=== PATIENT | male | born 1965 | race Caucasian/White ===

== ENCOUNTER 2018-04-23 10:47 | Inpatient (IN) ==
[2018-04-23 11:48] LABS: Baso % (Auto) 0.5 % (0.0-2.0); Eos % (Auto) 0.5 % (0.0-4.0); Hematocrit 47.5 % (39.0-51.0); Hemoglobin 17.4 gm/dL (13.0-17.0); Lymph # (Auto) 1.2 th/mm3 (1.0-4.8); Lymph % (Auto) 15.3 % (9.0-44.0); Mean Corpuscular Hemoglobin 32.8 pg (27.0-34.0); Mean Corpuscular Volume 89.5 fL (80.0-100.0); Mean Platelet Volume 8.6 fL (7.0-11.0); Mono # (Auto) 0.5 th/mm3 (0.0-0.9); Mono % (Auto) 6.8 % (0.0-8.0); Neut # (Auto) 6.1 th/mm3 (1.8-7.7); Neut % (Auto) 76.9 % (16.0-70.0); Platelet Count 250 th/mm3 (150-450); Red Cell Distribution Width 13.1 % (11.6-17.2)
--- NOTE | 2018-04-23 11:58 | ED ---
HPI General Chief Complaint: Psychiatric Symptoms Stated Complaint: psych eval/vcso Time Seen by Provider: 04/23/18 11:07 Source: patient and RN notes reviewed Limitations: no limitations History of Present Illness HPI Narrative: 52-year-old male was moved from the psychiatric pod, J pod, to echo medical pod for further evaluation. Patient was brought in by police under [employer] act. According to the patient, he has been making suicidal statements to his and has been depressed. He came here voluntarily 3 days ago, but left AMA when offered voluntary admission. Apparently, while in J pod , while the nurse was drawing blood, he grabbed the needle from the Vacutainer and was stabbing himself on both sides of his neck. The patient is moved to a medical pod for further evaluation. On my exam, he is in four-point restraints. He is withdrawn, but answering questions. He states that he made a huge mistake by moving from [place] to the [facility]. He is disappointed in himself and has been depressed. He states that he was angry that he was brought to the hospital under Brock act and that is why he tried to hurt himself. He states he has no current suicidal or homicidal ideations. The patient does not want to elaborate on why he is depressed. He reports drinking alcohol occasionally. No illicit drug use. He denies any pain or medical complaints at this time. Moderate severity. Patient will not tell me if his tetanus immunization is up to date, but declines any vaccinations today. MD complaint: Reports feels depressed Onset (ago): month(s) Duration: constant Relieving factors: none Exacerbating factors: none Context: Reports significant life stressor Associated psychiatric symptoms: Reports depression Associated symptoms: Reports denies other symptoms; Denies confusion, headache, shortness of breath, nausea, vomiting, syncope and insomnia Treatments prior to arrival: Reports placed on mental health hold If self harm: self-inflicted trauma Related Data Home Medications Medication Instructions Recorded Confirmed omeprazole 20 mg PO DAILY 04/20/18 04/23/18 simvastatin 20 mg PO QPM 04/20/18 04/23/18 Allergies Allergy/AdvReac Type Severity Reaction Status Date / Time azithromycin Allergy Hives Verified 04/23/18 10:54 Review of Systems ROS: all other systems reviewed are negative [facility] Social History Social History Substance History: No History of Abuse Second Hand Smoke Exposure: No Smoking Status: Never smoker How Often Do You Have a Drink Containing Alcohol: Never Recent Travel in [facility] within the Last 8 Weeks: No Recent Out of Country Travel within the Last 8 Weeks: No Immunization History Tetanus Immunization: Unsure Exam Narrative Exam Narrative: GENERAL: Well-nourished, well-developed male patient, ambulatory. Afebrile. SKIN: Focused skin assessment warm/dry. HEAD: Normocephalic. EYES: No scleral icterus. No injection or drainage. NECK: Supple, trachea midline. No JVD or lymphadenopathy. Patient has small puncture, nonbleeding wounds to anterior neck CARDIOVASCULAR: Regular rate and rhythm without murmurs, gallops, or rubs. RESPIRATORY: Breath sounds equal bilaterally. No accessory muscle use. Lung sounds are clear to auscultation. GASTROINTESTINAL: Abdomen soft, non-tender, nondistended. MUSCULOSKELETAL: No cyanosis, or edema. BACK: Nontender without obvious deformity. No CVA tenderness. PSYCHIATRIC: Flat affect, withdrawn Course Initial Documented Vital Signs Temperature 97.8 F 04/23/18 10:55 Pulse Rate 86 04/23/18 10:55 Respiratory Rate 16 04/23/18 10:55 Blood Pressure 159/95 H 04/23/18 10:55 Pulse Oximetry 99 04/23/18 10:55 Last Documented Vital Signs Temperature 98.8 F 04/23/18 18:26 Pulse Rate 83 04/23/18 18:26 Respiratory Rate 18 04/23/18 18:26 Blood Pressure 134/84 04/23/18 18:26 Pulse Oximetry 99 04/23/18 18:26 Medical Decision Making [facility] Narrative Medical decision making narrative: 52-year-old male presents to the emergency department under Brock act for psychiatric evaluation. While in the psychiatric pot, the patient grabbed a needle from a Vacutainer and began punching himself in the neck. IV access obtained. CBC, CMP, TSH, magnesium, alcohol level, Tylenol level, salicylate level are ordered and pending. CT of soft tissue neck with IV contrast is ordered and pending. Patient is given NS 1 L IV bolus. CBC shows hemoconcentration with a hemoglobin of 17.4, no acute abnormality. CMP shows elevated LFTs with an AST 164, ALT 99. TSH is 1.440. Magnesium is 2.0. Alcohol level is less than 3. Acetaminophen level is less than 2.0. Salicylate level i less than 1.7. CT soft tissue neck shows no evidence of soft tissue mass or lymphadenopathy; Mild spinal stenosis at C5-6 and C6- 7.Mucus retention cyst within left maxillary sinus. Patient is medically cleared for psychiatric screening and disposition. Medical Screen Exam Complete: Yes Emergency Medical Condition: Yes Differential Diagnosis Differential Diagnosis: suicidal ideation vs. depression vs. anxiety vs. metabolic derangement Medical Records Medical records reviewed: Yes I reviewed the patient's medical records. Lab Data Result diagrams: 04/23/18 11:15 04/23/18 11:15 Lab Results 04/23/18 04/23/18 04/23/18 Range/Units 11:15 11:15 11:15 WBC 8.0 (4.0-11.0) th/mm3 RBC 5.30 (4.50-5.90) mil/mm3 Hgb 17.4 H (13.0-17.0) gm/dL Hct 47.5 (39.0-51.0) % MCV 89.5 (80.0-100.0) fL MCH 32.8 (27.0-34.0) pg MCHC 36.6 H (32.0-36.0) % RDW 13.1 (11.6-17.2) % Plt Count 250 (150-450) th/mm3 MPV 8.6 (7.0-11.0) fL Prelim Diff (Auto) Slide review pending Neut % (Auto) 76.9 H (16.0-70.0) % Lymph % (Auto) 15.3 (9.0-44.0) % Burke % (Auto) 6.8 (0.0-8.0) % Eos % (Auto) 0.5 (0.0-4.0) % Baso % (Auto) 0.5 (0.0-2.0) % Neut # (Auto) 6.1 (1.8-7.7) th/mm3 Lymph # (Auto) 1.2 (1.0-4.8) th/mm3 Burke # (Auto) 0.5 (0.0-0.9) th/mm3 Eos # (Auto) 0.0 (0.0-0.4) th/mm3 Baso # (Auto) 0.0 (0.0-0.2) th/mm3 WBC Differential . Diff Scan Auto diff confirmed Differential Comment . Sodium 140 (136-145) meq/L Potassium 3.9 (3.5-5.1) meq/L Chloride 107 (98-107) meq/L Carbon Dioxide 24.4 (21.0-32.0) meq/L Anion Gap 9 (5-15) meq/L BUN 15 (7-18) mg/dL Creatinine 0.82 (0.60-1.30) mg/dL Estimated GFR Greater than 89 (>89) mL/min Random Glucose 149 H (74-106) mg/dL Calcium 9.0 (8.5-10.1) mg/dL Magnesium 2.0 (1.5-2.5) mg/dL Total Bilirubin 0.7 (0.2-1.0) mg/dL AST 164 H (15-37) U/L ALT 99 H (12-78) U/L Alkaline Phosphatase 88 (45-117) U/L Total Protein 8.2 (6.4-8.2) g/dL Albumin 4.4 (3.4-5.0) g/dL TSH 1.440 (0.358-3.740) uIU/mL Salicylates Less than 1.7 L (2.8-20.0) mg/dL Urine Opiates Screen (Neg) Acetaminophen Less than 2.0 L (10.0-30.0) mcg/mL Ur Barbiturates Screen (Neg) Ur Amphetamines Screen (Neg) U Benzodiazepines Scrn (Neg) Urine Cocaine Screen (Neg) U Cannabinoids Screen (Neg) Serum Alcohol Less than 3 (0-5) mg/dL 04/23/18 Range/Units 11:15 WBC (4.0-11.0) th/mm3 RBC (4.50-5.90) mil/mm3 Hgb (13.0-17.0) gm/dL Hct (39.0-51.0) % MCV (80.0-100.0) fL MCH (27.0-34.0) pg MCHC (32.0-36.0) % RDW (11.6-17.2) % Plt Count (150-450) th/mm3 MPV (7.0-11.0) fL Prelim Diff (Auto) Neut % (Auto) (16.0-70.0) % Lymph % (Auto) (9.0-44.0) % Burke % (Auto) (0.0-8.0) % Eos % (Auto) (0.0-4.0) % Baso % (Auto) (0.0-2.0) % Neut # (Auto) (1.8-7.7) th/mm3 Lymph # (Auto) (1.0-4.8) th/mm3 Burke # (Auto) (0.0-0.9) th/mm3 Eos # (Auto) (0.0-0.4) th/mm3 Baso # (Auto) (0.0-0.2) th/mm3 WBC Differential Diff Scan Differential Comment Sodium (136-145) meq/L Potassium (3.5-5.1) meq/L Chloride (98-107) meq/L Carbon Dioxide (21.0-32.0) meq/L Anion Gap (5-15) meq/L BUN (7-18) mg/dL Creatinine (0.60-1.30) mg/dL Estimated GFR (>89) mL/min Random Glucose (74-106) mg/dL Calcium (8.5-10.1) mg/dL Magnesium (1.5-2.5) mg/dL Total Bilirubin (0.2-1.0) mg/dL AST (15-37) U/L ALT (12-78) U/L Alkaline Phosphatase (45-117) U/L Total Protein (6.4-8.2) g/dL Albumin (3.4-5.0) g/dL TSH (0.358-3.740) uIU/mL Salicylates (2.8-20.0) mg/dL Urine Opiates Screen Neg (Neg) Acetaminophen (10.0-30.0) mcg/mL Ur Barbiturates Screen Neg (Neg) Ur Amphetamines Screen Neg (Neg) U Benzodiazepines Scrn Neg (Neg) Urine Cocaine Screen Neg (Neg) U Cannabinoids Screen Neg (Neg) Serum Alcohol (0-5) mg/dL Imaging Data Radiologist's impression: Soft Tissue Neck CT 04/23/18 11:50 CONCLUSION: 1. No evidence of soft tissue mass or lymphadenopathy. 2. Mild spinal stenosis at C5-6 and C6-7. Mucus retention cyst within left maxillary sinus. Electronically signed by: Fortunato Ricks MD 04/23/2018 2:34 PM EDT Discharge Plan Discharge Disposition Patient Disposition: 30 Still Patient Discharge Condition Condition: Stable Discharge Details Diagnosis: Depression Physicians Team ED Provider: Santiago Goins ED Midlevel Provider: Yamilka Beck Primary Care Provider: UNKNOWN, Rxs /Orders / Referrals /Forms Prescriptions: No Action simvastatin 20 mg Tablet 20 mg PO QPM RF: 0 omeprazole 20 mg Capsule,Delayed Release(Dr/Ec) 20 mg PO DAILY RF: 0 Status ED Status: Medically Cleared
[2018-04-23 11:59] LABS: Mean Corpuscular HGB Conc 36.6 % (32.0-36.0)
[2018-04-23 12:04] LABS: Amphetamine Screen,Urine Neg (Neg); Barbiturate Screen,Urine Neg (Neg); Cannabinoid Screen,Urine Neg (Neg); Cocaine Screen,Urine Neg (Neg)
[2018-04-23] MEDS ORDERED: Sod Chloride 0.9% Inj 1,000 ML IV.SIG ONE (12:06)
[2018-04-23 12:16] LABS: Opiate Screen,Urine Neg (Neg)
[2018-04-23 12:41] LABS: Alanine Aminotransferase 99 U/L (12-78); Albumin 4.4 g/dL (3.4-5.0); Alkaline Phosphatase 88 U/L (45-117); Anion Gap 9 meq/L (5-15); Aspartate Aminotransferase 164 U/L (15-37); Blood Urea Nitrogen 15 mg/dL (7-18); Carbon Dioxide 24.4 meq/L (21.0-32.0); Chloride 107 meq/L (98-107); Glomerular Filtration Rate Greater Than 89 mL/min (>89); Glucose,Random 149 mg/dL (74-106); Potassium 3.9 meq/L (3.5-5.1); Sodium 140 meq/L (136-145); Total Protein 8.2 g/dL (6.4-8.2)
--- NOTE | 2018-04-23 14:35 | CT ---
EXAM DATE: 04/23/2018 2:30 PM EDT AGE/SEX: 52 years / Male INDICATIONS: Left neck punctured with needle today. CLINICAL DATA: This is the patient's initial encounter. Patient reports that signs and symptoms have been present for 1 day and indicates a pain score of 0/10. MEDICAL/SURGICAL HISTORY: Gastroesophageal reflux disease. None. RADIATION DOSE: 19.76 CTDI (mGy) COMPARISON: No prior exams available for comparison. TECHNIQUE: Helical acquisition was performed using a multirow detector CT scanner during the adminis tration of 72 ml Omnipaque 350 (iohexol) nonionic water-soluble contrast as a single exam dose. Usi ng automated exposure control and adjustment of the mA and/or kV according to patient size, radiation dose was kept as low as reasonably achievable to obtain optimal diagnostic quality images. DICOM fo rmat image data is available electronically for review and comparison. FINDINGS: Nasopharynx: The nasopharyngeal airway has a normal configuration. No mucosal thickening or mass is seen. Oropharynx: The intrinsic muscles of the tongue are symmetric. The tonsillar pillars are intact. T he prevertebral soft tissues are not thickened. Larynx: The supraglottic, glottic, and infraglottic structures are intact. Parapharyngeal: The parapharyngeal space is intact. Salivary Glands: The parotid and submandibular glands are intact. Lymph Nodes: No enlarged or necrotic-appearing nodes. Thyroid: Homogeneous enhancement without evidence of nodule. Bones: Mild spinal stenosis is noted at C5-6 and C6-7. CONCLUSION: 1. No evidence of soft tissue mass or lymphadenopathy. 2. Mild spinal stenosis at C5-6 and C6-7. Mucus retention cyst within left maxillary sinus. Electronically signed by: Fortunato Ricks MD 2017 2:34 PM EDT
[2018-04-24] MEDS ORDERED: Pantoprazole Sodium 20 MG DR Tablet PO ONE (00:34)
[2018-04-24] MEDS ORDERED: Acetaminophen 325 MG Tablet PO ONE (00:34)
--- NOTE | 2018-04-24 07:51 | P.CONPSY ---
Provisional Diagnosis Admission Date: April 23, 2018 10:47 [place] I.: 1. Major depressive disorder, single episode, severe without psychotic features [place] II.: Deferred History of Present Illness Service: Psychiatry Consult date: 04/24/18 Requesting Physician: Yamilka Beck Reason for Consult: Brock act Primary Care Provider: UNKNOWN History of Present Illness: Mr. Gaines is a 52-year-old male with no reported past psychiatric history who presents under a Brock act by [facility]'s office alleging that the patient has "shown signs of depression over the past several weeks per friends. " Brock act further alleges that the patient made suicidal statements to his . He recently presented for voluntary psychiatric evaluation. According to ED provider notes: "while in J pod, while the nurse was drawing blood, he grabbed the needle from the Vacutainer and was stabbing himself on both sides of his neck." Patient was medically evaluated and cleared. Electronic medical record reviewed. Patient seen and examined. Chart reviewed. Case discussed with nurse in the J pod. On my evaluation today, the patient presents as withdrawn. His speech is slow and he is also somewhat psychomotor slowed. He tells me that he has been feeling increasingly depressed for the last several months after moving from [place]. He endorses low mood, anxiety, poor sleep, hopeless and worthless feelings. He has had recent suicidal ideation. He says that his attempt at stabbing his neck reflected "being stupid." Although he denies suicidal ideation at this time, he seems decidedly unreliable to contract for safety. I can elicit no hypomanic or manic symptoms, and the patient denies any history of same. He denies any audiovisual hallucinations. I can elicit no paranoia, no feelings of thought manipulation, no ideas of reference, or other delusional material. The remainder of the psychiatric ROS is negative. No acute physical complaints. Past psychiatric history: The patient denies a history of psychiatric diagnosis. He denies a history of inpatient or outpatient psychiatric treatment. He denies a history of suicide attempts. Family history: The patient reports that he is adopted and knows nothing of his biological family psychiatric history. Chemical dependency history: The patient denies any abuse of drugs or alcohol. Social history: The patient lives with his . He has no children. He has a bachelor's degree in history from [employer] and presently works in real [employer]. He denies any history. Denies any legal history. Denies any access to guns or firearms. He describes himself as spiritual but not pentecostalism. Past medical history: The patient reports a history of GERD and hyperlipidemia. He also thinks he may be prediabetic. Medications: Omeprazole and simvastatin. Review of Systems All other systems reviewed negative except as stated in HPI PMF - History History Provided By: Patient - Medical History Medical History: Medical History (Last Reviewed 04/23/18 @ 10:56 by Cinthya Garcia) GERD (gastroesophageal reflux disease) High cholesterol - Surgical History Surgical History: Surgical History (Last Reviewed 04/23/18 @ 10:56 by Cinthya Garcia) H/O knee surgery - Tobacco History Second Hand Smoke Exposure: No Smoking Status: Never smoker - Alcohol History How Often Do You Have a Drink Containing Alcohol: Never - Substance Use History Substance History: No History of Abuse - Travel History Recent Travel in the [place] Within the Last 8 Weeks: No Recent Travel Out of the Country Within the Last 8 Weeks: No - Immunization History Tetanus Immunization: Unsure Medications and Allergies Allergies Allergy/AdvReac Type Severity Reaction Status Date / Time azithromycin Allergy Hives Verified 04/23/18 10:54 Home Medications Medication Instructions Recorded Confirmed Type omeprazole 20 mg PO DAILY 04/20/18 04/23/18 History simvastatin 20 mg PO QPM 04/20/18 04/23/18 History Exam Vital signs: Vital Signs 04/23/18 10:55 04/23/18 14:00 04/23/18 18:26 Temperature 97.8 F 97.8 F 98.8 F Pulse Rate 86 78 83 Respiratory Rate 16 18 18 Blood Pressure 159/95 H 132/76 134/84 Pulse Oximetry 99 99 99 04/23/18 22:18 04/24/18 06:15 Temperature Pulse Rate 93 H 61 Respiratory Rate 18 14 Blood Pressure 134/81 131/78 Pulse Oximetry 99 100 Intake & Output 04/23/18 04/24/18 04/24/18 18:59 06:59 18:59 Intake Total 1000 / 1000 Output Total 850 / 850 Balance 150 / 150 Weight 113.398 kg Intake: IV 1000 / 1000 NS Inj 1,000 ML @ Wide Open IV. 1000 / 1000 SIG BOLUS ONE Rx#:[id number] Output: Urine 850 / 850 Other: # Voids 2 Narrative: Physical examination was completed by the ED provider. On my examination today , the patient appears to be in no acute physical distress. Except for psychomotor slowing, no motor abnormalities noted. Labs and vital signs reviewed: Laboratory Tests 04/23/18 04/23/18 04/23/18 11:15 11:15 11:15 WBC 8.0 Hgb 17.4 H Plt Count 250 Sodium 140 Potassium 3.9 Chloride 107 Carbon Dioxide 24.4 BUN 15 Creatinine 0.82 Estimated GFR Greater than 89 AST 164 H ALT 99 H Alkaline Phosphatase 88 TSH 1.440 Urine Opiates Screen Neg Ur Barbiturates Screen Neg Ur Amphetamines Screen Neg U Benzodiazepines Scrn Neg Urine Cocaine Screen Neg U Cannabinoids Screen Neg Serum Alcohol Less than 3 Impressions Soft Tissue Neck CT 04/23/18 11:50 CONCLUSION: 1. No evidence of soft tissue mass or lymphadenopathy. 2. Mild spinal stenosis at C5-6 and C6-7. Mucus retention cyst within left maxillary sinus. Electronically signed by: Fortunato Ricks MD 04/23/2018 2:34 PM EDT Mental Status Examination Appearance: Appropriate (In hospital attire) Consciousness: Alert Orientation: Person, Place (At least) Motor Activity: Other (Psychomotor slowed.) Speech: Slow Language: Adequate Fund of Knowledge: Adequate Attention and Concentration: Adequate Memory: Unremarkable (Grossly intact on clinical exam) Mood: Other (Depressed) Affect: Other (Restricted) Thought Process & Associations: Intact Thought Content: Preoccupations Hallucination Type: None Delusion Type: None Suicidal Ideation: No (Unreliable to contract for safety) Suicidal Plan: No Suicidal Intention: No Homicidal Ideation: No Homicidal Plan: No Homicidal Intention: No Insight: Poor Judgment: Poor Assessment and Plan - Assessment (1) Depression Code(s): F32.9 - Major depressive disorder, single episode, unspecified Status : Acute - Plan Plan: 52-year-old male with psychiatric history as detailed above who presents under a Brock act. On my examination today, the patient elaborates multiple depressive symptoms, and a major depressive episode is suspected. Although he denies suicidal ideation, the patient has endeavored to self-harm while in the ED per report and was endorsing suicidal ideation to his per the Brock act. The patient remains at elevated risk for ongoing self-harm and requires inpatient psychiatric stabilization. --Brock act remains in place. Recommend continuing1 to monitor patient closely in the ED until patient can be transferred for inpatient psychiatric services. --Case discussed with nurse in the J pod who will arrange for inpatient psychiatric services for patient. Thank you very much for this consultation. Justification for Continued Inpatient Stay: . (1) Depression Qualifiers: Depression Type: major depressive disorder Major depression recurrence: single episode Active/Remission status: currently active Major depression episode severity: severe Psychotic features: without psychotic features Qualified Code(s): F32.2 - Major depressive disorder, single episode, severe without psychotic features
[2018-04-25] MEDS ORDERED: Aluminum/Magnesium/Simethacone Susp 30 ML UDC PO PRN (14:27)
[2018-04-25 15:48] LABS: Baso % (Auto) 0.4 % (0.0-2.0); Eos # (Auto) 0.1 th/mm3 (0.0-0.4); Eos % (Auto) 1.2 % (0.0-4.0); Hematocrit 49.3 % (39.0-51.0); Hemoglobin 17.4 gm/dL (13.0-17.0); Lymph # (Auto) 1.8 th/mm3 (1.0-4.8); Lymph % (Auto) 22.6 % (9.0-44.0); Mean Corpuscular HGB Conc 35.4 % (32.0-36.0); Mean Corpuscular Volume 90.4 fL (80.0-100.0); Mean Platelet Volume 8.1 fL (7.0-11.0); Mono # (Auto) 0.6 th/mm3 (0.0-0.9); Mono % (Auto) 7.3 % (0.0-8.0); Neut # (Auto) 5.3 th/mm3 (1.8-7.7); Neut % (Auto) 68.5 % (16.0-70.0); Platelet Count 253 th/mm3 (150-450); Red Blood Count 5.45 mil/mm3 (4.50-5.90); Red Cell Distribution Width 13.3 % (11.6-17.2); White Blood Count 7.8 th/mm3 (4.0-11.0)
[2018-04-25 16:10] LABS: Alkaline Phosphatase 90 U/L (45-117); Creatine Kinase 713 U/L (39-308); Total Protein 8.1 g/dL (6.4-8.2)
[2018-04-25 16:14] LABS: Alanine Aminotransferase 94 U/L (12-78); Albumin 4.3 g/dL (3.4-5.0); Anion Gap 6 meq/L (5-15); Aspartate Aminotransferase 103 U/L (15-37); Blood Urea Nitrogen 20 mg/dL (7-18); Calcium 9.3 mg/dL (8.5-10.1); Chloride 108 meq/L (98-107); Glomerular Filtration Rate 80 mL/min (>89); Glucose,Random 101 mg/dL (74-106); Magnesium 2.3 mg/dL (1.5-2.5); Potassium 4.1 meq/L (3.5-5.1); Sodium 143 meq/L (136-145)
[2018-04-25 16:27] LABS: CKMB Percent 0.3 % (0.0-4.0); Creatine Kinase MB 1.9 ng/mL (0.5-3.6)
[2018-04-25] MEDS ORDERED: Sod Chloride 0.9% Inj 1,000 ML IV.SIG SCH (17:15)
--- NOTE | 2018-04-26 07:56 | P.HPPSY ---
Provisional Diagnosis Admission Date: April 25, 2018 14:26 [place].: 1. Major depressive disorder, single episode, severe without psychotic features [place].: Deferred Competence Certification of Person's Competence To Provide Express and Informed Consent I have personally examined Christophe Gaines, a person being served at [facility] on, April 26, 2018 0756. Express and informed consent means consent voluntarily given in writing, by a competent person, after sufficient explanation and disclosure of the subject matter involved to enable the person to make a knowing and willful decision without any element of force, fraud, deceit, duress, or other form of constraint or coercion. This person is 18 years of age or older, is not now known to be incompetent to consent to treatment with a guardian advocate, and does not have a health care surrogate or proxy currently making medical treatment decisions. I have found this person to be one of the following: [X] Competent to provide express and informed consent, as defined above, for voluntary admission to this facility and is competent to provide express and informed consent for treatment. He/she has the consistent capacity to make well reasoned, willful, and knowing decisions concerning his or her medical or mental health treatment. The person fully and consistently understands the purpose of the admission for examination/placement and is fully capable of personally exercising all rights assured under [place] Incompetent to provide express and informed consent to voluntary admission, and this is incompetent to provide express and informed consent to treatment. The person must be transferred to involuntary status and a petition for a guardian advocate filed with the Circuit Court. [] Refusing to provide express and informed consent to voluntary admission but is competent to provide express and informed consent for treatment. The person must be discharged or transferred to involuntary status. Form shall be completed within 24 hours of a person's arrival at the receiving facility and filed in the clinical record of each person: 1. Admitted on a voluntary basis 2. Permitted to provide express and informed consent to his/her own treatment 3. Allowed to transfer from involuntary to voluntary status 4. Prior to permitting a person to consent to his or her own treatment after having been previously found incompetent to consent to treatment. History of Present Illness Capacity: Has capacity Chief Complaint: Brock act History of Present Illness: From my consult note of 04/24: Mr. Gaines is a 52-year-old male with no reported past psychiatric history who presents under a Brock act by [facility]'s office alleging that the patient has "shown signs of depression over the past several weeks per friends. " Brock act further alleges that the patient made suicidal statements to his . He recently presented for voluntary psychiatric evaluation. According to ED provider notes: "while in J pod, while the nurse was drawing blood, he grabbed the needle from the Vacutainer and was stabbing himself on both sides of his neck." Patient was medically evaluated and cleared. Electronic medical record reviewed. Patient seen and examined. Chart reviewed. Case discussed with nurse in the J pod. On my evaluation today, the patient presents as withdrawn. His speech is slow and he is also somewhat psychomotor slowed. He tells me that he has been feeling increasingly depressed for the last several months after moving from [place]. He endorses low mood, anxiety, poor sleep, hopeless and worthless feelings. He has had recent suicidal ideation. He says that his attempt at stabbing his neck reflected "being stupid." Although he denies suicidal ideation at this time, he seems decidedly unreliable to contract for safety. I can elicit no hypomanic or manic symptoms, and the patient denies any history of same. He denies any audiovisual hallucinations. I can elicit no paranoia, no feelings of thought manipulation, no ideas of reference, or other delusional material. The remainder of the psychiatric ROS is negative. No acute physical complaints. Past psychiatric history: The patient denies a history of psychiatric diagnosis. He denies a history of inpatient or outpatient psychiatric treatment. He denies a history of suicide attempts. Family history: The patient reports that he is adopted and knows nothing of his biological family psychiatric history. Chemical dependency history: The patient denies any abuse of drugs or alcohol. Social history: The patient lives with his . He has no children. He has a bachelor's degree in history from [employer] and presently works in [employer]. He denies any history. Denies any legal history. Denies any access to guns or firearms. He describes himself as spiritual but not sikhism. Past medical history: The patient reports a history of GERD and hyperlipidemia. He also thinks he may be prediabetic. Medications: Omeprazole and simvastatin. On my examination today, 04/26: Patient seen and examined with nurse. Chart reviewed. Case discussed with nursing staff. I do see it noted in the chart that the patient had been refusing food in the ED however nurse reports that the patient ate dinner and snack with no problem. Case discussed in treatment team. On my examination today, the patient presents as anhedonic and withdrawn. He says his mood is "alright." Sleep was fair. When I ask about hopeless or worthless feelings he says "not necessarily." He says that it is too early to tell whether he is having focus or concentration problems. He denies any suicidal or homicidal ideation at this time. No hypomanic or manic symptoms. Denies audiovisual hallucinations. No acute physical complaints. We discuss pharmacotherapeutic options for management of depression. We discuss his initial laboratory findings including elevated CK. We discuss his recent hospitalization, disclosed by and collateral obtained by staff, at [facility]. - Inpatient Certification I certify that the inpatient services were ordered in accordance with Medicare regulations governing the order. This includes certification that hospital inpatient services are reasonable and necessary and in the case of services not specified as inpatient-only under 42 CFR 419.22(n), that they are appropriately provided as inpatient services in accordance to with the 2-midnight benchmark under 43 CFR 412.3(e) I certify that inpatient psychiatric hospital services are medically necessary. Evaluation and treatment and/or diagnostic testing are expected to improve the patient's condition. The patient needs on a daily basis, active treatment furnished directly by or requiring the supervision of inpatient psychiatric facility personnel. Estimated Total Length of Stay (Days): 7 Plans for Post Hospital Care: Not yet determined Review of Systems All other systems reviewed negative except as stated in HPI PMFSH - History History Provided By: Patient - Medical History Medical History: Medical History (Last Reviewed 04/23/18 @ 10:56 by Cinthya Garcia) GERD (gastroesophageal reflux disease) High cholesterol - Surgical History Surgical History: Surgical History (Last Reviewed 04/23/18 @ 10:56 by Cinthya Garcia) H/O knee surgery - Tobacco History Second Hand Smoke Exposure: No Smoking Status: Never smoker - Alcohol History How Often Do You Have a Drink Containing Alcohol: Never - Substance Use History Substance History: No History of Abuse - Substance Use Type Other Comment: Patient denies past and/or presents substance use. - Travel History Recent Travel in the [place] Within the Last 8 Weeks: No Recent Travel Out of the Country Within the Last 8 Weeks: No - Immunization History Tetanus Immunization: Unsure Quality Measures - Psychiatric History Psychological trauma history: No reported trauma history to me. - Patient Strengths Patient's strengths (minimum of 2): In a monitored setting. Verbally fluent. Medications and Allergies Active Medications: Active Medications Al Hydrox/Mg Hydrox/Simethicone (Mag-Al Plus Susp Liq) 30 ml PO Q6H PRN PRN Reason: DYSPEPSIA Al Hydroxide/Mg Hydroxide (Milk Of Magnesia Liq) 30 ml PO Q12H PRN PRN Reason: Mild Constipation Sodium Chloride (Ns Inj) 1,000 mls @ 0 mls/hr IV.SIG BOLUS GONZALEZ Lactulose (Lactulose Liq) 30 ml PO DAILY PRN PRN Reason: SEVERE CONSITIPATION Non-Formulary Medication (Omeprazole [Omeprazole]) 20 mg PO DAILY GONZALEZ Non-Formulary Medication (Simvastatin [Simvastatin]) 20 mg PO QPM [facility] Last Admin: 04/26/18 04:07 Dose: Not Given Sennosides (Senokot) 17.2 mg PO Q12H PRN PRN Reason: Moderate Constipation Allergies Allergy/AdvReac Type Severity Reaction Status Date / Time azithromycin Allergy Hives Verified 04/23/18 10:54 Home Medications Medication Instructions Recorded Confirmed Type omeprazole 20 mg PO DAILY 04/20/18 04/23/18 History simvastatin 20 mg PO QPM 04/20/18 04/23/18 History Results - Labs CBC & Chem 7: 04/25/18 15:38 04/26/18 09:59 Labs: Laboratory Results - last 24 hr 04/25/18 04/25/18 15:38 15:38 WBC 7.8 RBC 5.45 Hgb 17.4 H Hct 49.3 MCV 90.4 MCH 32.0 MCHC 35.4 RDW 13.3 Plt Count 253 MPV 8.1 Neut % (Auto) 68.5 Lymph % (Auto) 22.6 [place] % (Auto) 7.3 Eos % (Auto) 1.2 Baso % (Auto) 0.4 Neut # (Auto) 5.3 Lymph # (Auto) 1.8 [place] # (Auto) 0.6 Eos # (Auto) 0.1 Baso # (Auto) 0.0 WBC Differential . Differential Comment Auto diff final Sodium 143 Potassium 4.1 Chloride 108 H Carbon Dioxide 29.0 Anion Gap 6 BUN 20 H Creatinine 0.98 Estimated GFR 80 L Random Glucose 101 Calcium 9.3 Magnesium 2.3 Total Bilirubin 0.9 AST 103 H ALT 94 H Alkaline Phosphatase 90 Total Creatine Kinase 713 H CK-MB (CK-2) 1.9 CK-MB (CK-2) % 0.3 Total Protein 8.1 Albumin 4.3 Laboratory Tests 04/26/18 09:59 Sodium 143 Potassium 3.8 Chloride 107 Carbon Dioxide 29.3 Anion Gap 7 BUN 20 H Creatinine 0.83 Estimated GFR Greater than 89 Random Glucose 123 H Calcium 9.0 Total Creatine Kinase 331 H CK-MB (CK-2) 1.2 CK-MB (CK-2) % 0.4 Labs reviewed. Mild, improving transaminitis. CK elevated, down trending. Exam Vital signs: Vital Signs 04/25/18 20:32 04/26/18 06:05 Temperature 97.6 F 97.9 F Pulse Rate 86 86 Respiratory Rate 18 18 Blood Pressure 139/96 H 131/85 Pulse Oximetry 99 96 Intake & Output 04/25/18 04/26/18 04/26/18 18:59 06:59 18:59 Weight 111.1 kg Other: Weight On Admission 111.1 kg Narrative: Physical examination completed by ED provider. On my examination today, the patient appears to be in no acute physical distress. No motor abnormalities noted. Labs and vital signs reviewed. Mental Status Examination Appearance: Appropriate Consciousness: Alert Orientation: Person, Place (At least) Motor Activity: Other (Somewhat psychomotor slowed) Speech: Slow Language: Adequate Fund of Knowledge: Adequate Attention and Concentration: Adequate Memory: Unremarkable (Grossly intact on clinical exam) Mood: Other ("Alright") Affect: Other (Dysphoric and restricted) Thought Process & Associations: Intact Thought Content: Appropriate Hallucination Type: None Delusion Type: None Suicidal Ideation: No (Unreliable to contract for safety) Suicidal Plan: No Suicidal Intention: No Homicidal Ideation: No Homicidal Plan: No Homicidal Intention: No Insight: Poor Judgment: Poor Assessment and Plan - Assessment (1) Depression Code(s): F32.9 - Major depressive disorder, single episode, unspecified Status : Acute - Plan Plan: 52-year-old male with psychiatric history as detailed above who is presently admitted to the inpatient psychiatric unit under a Brock act. On my examination today, the patient remains fairly dysphoric. Although he denies suicidal ideation he did endeavor to self injure in the ED and was also refusing to eat. Patient requires psychiatric hospitalization at this time for safety, observation and stabilization. Admit inpatient. Voluntary status. Lengthy discussion with patient regarding conditions of voluntary status including right of release. For management of the patient's depression, initiate Remeron 15 mg at bedtime with plans to titrate to effect and as tolerated. Low-dose Atarax as needed for anxiety. Melatonin as needed for sleep. R/B/A for medications discussed with patient. Continue PPI and statin. Vitals every shift. Counselor to see and obtain collateral information. Disposition planning. Estimated length of stay: 5-7 days. Justification for Continued Inpatient Stay: See above Discharge Planning: Pending psychiatric stabilization. Request Healthcare Surrogate/Guardian Advocate?: No (1) Depression Qualifiers: Depression Type: major depressive disorder Major depression recurrence: single episode Active/Remission status: currently active Major depression episode severity: severe Psychotic features: without psychotic features Qualified Code(s): F32.2 - Major depressive disorder, single episode, severe without psychotic features
[2018-04-26] MEDS: Pantoprazole Sodium 20 MG DR Tablet PO SCH (09:37)
[2018-04-26 11:01] LABS: Anion Gap 7 meq/L (5-15); Blood Urea Nitrogen 20 mg/dL (7-18); Carbon Dioxide 29.3 meq/L (21.0-32.0); Chloride 107 meq/L (98-107); Glomerular Filtration Rate Greater Than 89 mL/min (>89); Glucose,Random 123 mg/dL (74-106); Potassium 3.8 meq/L (3.5-5.1); Sodium 143 meq/L (136-145)
[2018-04-26 11:02] LABS: Creatine Kinase 331 U/L (39-308)
[2018-04-26 11:18] LABS: CKMB Percent 0.4 % (0.0-4.0); Creatine Kinase MB 1.2 ng/mL (0.5-3.6)
[2018-04-26] MEDS: Mirtazapine 15 MG Tablet PO SCH (20:09)
[2018-04-26] MEDS: Melatonin 5 MG Tablet PO PRN (22:48)
[2018-04-27] MEDS: Pantoprazole Sodium 20 MG DR Tablet PO SCH (08:34)
--- NOTE | 2018-04-27 12:09 | P.PNPSY ---
Subjective Chief Complaint: Brock act Remarks: Patient seen and examined with nurse. Chart reviewed. Case discussed with nursing staff. On my examination today, the patient says that he slept somewhat better with addition of Remeron. Mood is slowly improving. He is thinking about how to put his life back together after presenting crisis and seems future oriented in this regard. reportedly told RN that patient had paradoxical increase in anxiety with hydroxyzine, but patient himself says that the Atarax is helping somewhat with anxiety. Denies side effects from medications. No physical complaints. Vital Signs Temp Pulse Resp BP Pulse Ox 04/27/18 05:46 97.9 F 68 17 109/73 100 04/26/18 17:37 98.3 F 84 18 140/71 97 Intake and Output 04/26/18 04/27/18 04/27/18 22:59 06:59 14:59 Intake Total 360 / 360 Balance 360 / 360 Intake: Oral 360 / 360 Labs reviewed. No new labs. Review of Systems All other systems reviewed negative except as stated in HPI Mental Status Examination Appearance: Appropriate Consciousness: Alert Orientation: Person, Place (At least) Motor Activity: Other (No motor abnormalities noted) Speech: Slow Language: Adequate Fund of Knowledge: Adequate Attention and Concentration: Adequate Memory: Unremarkable (Grossly intact on clinical exam) Mood: Other (Mood slowly improving but remains depressed) Affect: Other (Remains dysphoric and withdrawn) Thought Process & Associations: Intact Thought Content: Appropriate Hallucination Type: None Delusion Type: None Suicidal Ideation: No (Unclear whether patient is reliable to contract for safety) Homicidal Ideation: No Insight: Poor Judgment: Poor Assessment and Plan - Assessment (1) Depression Code(s): F32.9 - Major depressive disorder, single episode, unspecified Status : Acute - Plan Plan: Continue Remeron as ordered. To consider further titration of this agent. Check BMP and CK in the morning. Continue to monitor on the inpatient unit. Continue other medications and care as ordered. I have encouraged participation in groups and unit activities. Justification for Continued Inpatient Stay: Risk for decompensation in less restrictive environment. Monitoring for impairment in safety. Discharge Planning: Pending psychiatric stabilization. Request Healthcare Surrogate/Guardian Advocate?: No (1) Depression Qualifiers: Depression Type: major depressive disorder Major depression recurrence: single episode Active/Remission status: currently active Major depression episode severity: severe Psychotic features: without psychotic features Qualified Code(s): F32.2 - Major depressive disorder, single episode, severe without psychotic features
[2018-04-27] MEDS: Mirtazapine 15 MG Tablet PO SCH (20:21)
[2018-04-28 07:49] LABS: Calcium 8.7 mg/dL (8.5-10.1); Carbon Dioxide 30.1 meq/L (21.0-32.0); Potassium 4.1 meq/L (3.5-5.1)
[2018-04-28] MEDS: Pantoprazole Sodium 20 MG DR Tablet PO SCH (08:37)
--- NOTE | 2018-04-28 11:15 | P.PNPSY ---
Subjective Chief Complaint: Brock act Remarks: Patient seen and examined. Chart reviewed. Case discussed with nursing staff. Night nurse held Remeron for lack of consent even though consent was on file on the chart. Day nurse will instruct night nurse to give the Remeron as ordered as valid consent is on file. On my exam, patient remains seclusive to room. He remains somewhat depressed and endorses poor concentration and focus. He tells me that he is trying to "figure out what comes next" in his life. Denies SI, wants to live for family and . No side effects from medications. No physical complaints. He is open to IOP/PHP as step-down from inpatient unit, and counselor will speak with patient regarding his options in this regard. Vital Signs Temp Pulse Resp BP Pulse Ox 04/28/18 06:00 98.1 F 63 18 114/71 99 04/27/18 18:30 97.7 F 95 H 18 132/86 95 Intake and Output 04/27/18 04/28/18 04/28/18 22:59 06:59 14:59 Other: Weight 111.9 kg Laboratory Results - last 24 hr 04/28/18 06:32 Sodium 143 Potassium 4.1 Chloride 106 Carbon Dioxide 30.1 Anion Gap 7 BUN 19 H Creatinine 0.96 Estimated GFR 82 L Random Glucose 114 H Calcium 8.7 Total Creatine Kinase 127 Labs reviewed. CK has normalized. BMP reveals very mildly decreased GFR. Review of Systems All other systems reviewed negative except as stated in HPI Mental Status Examination Appearance: Appropriate Consciousness: Alert Orientation: Person, Place (At least) Motor Activity: Other (No motor abnormalities noted) Speech: Slow Language: Adequate Fund of Knowledge: Adequate Attention and Concentration: Adequate Memory: Unremarkable (Grossly intact on clinical exam) Mood: Other (Mood slowly improving but remains depressed) Affect: Other (Remains somewhat dysphoric) Thought Process & Associations: Intact Thought Content: Appropriate Hallucination Type: None Delusion Type: None Suicidal Ideation: No Suicidal Plan: No Suicidal Intention: No Homicidal Ideation: No Homicidal Plan: No Homicidal Intention: No Insight: Poor Judgment: Poor Assessment and Plan - Assessment (1) Depression Code(s): F32.9 - Major depressive disorder, single episode, unspecified Status : Acute - Plan Plan: Continue Remeron as ordered; to consider titrating to 30mg qHS tomorrow. Continue to monitor on inpatient unit. Continue other meds and care as ordered. Justification for Continued Inpatient Stay: Monitoring for impairment in safety. Risk for decompensation in less restrictive environment. Discharge Planning: Pending psychiatric stabilization. Possible discharge to [facility] or [facility] level of care. Case discussed with counselor. Request Healthcare Surrogate/Guardian Advocate?: No (1) Depression Qualifiers: Depression Type: major depressive disorder Major depression recurrence: single episode Active/Remission status: currently active Major depression episode severity: severe Psychotic features: without psychotic features Qualified Code(s): F32.2 - Major depressive disorder, single episode, severe without psychotic features
[2018-04-28] MEDS: Mirtazapine 15 MG Tablet PO SCH (20:51)
[2018-04-29] MEDS: Pantoprazole Sodium 20 MG DR Tablet PO SCH (08:49)
--- NOTE | 2018-04-29 09:24 | P.PNPSY ---
Subjective Chief Complaint: Brock act Remarks: Patient seen and examined with counselor. Chart reviewed. Case discussed with nursing staff. Case discussed in treatment team. Counselor relates that patient could go to residential at [facility] but would not be able to get there until Wednesday as [facility] needs that amount of time to get prior- authorization from patient's insurer. On my exam, patient remains depressed. He perseverates on his financial situation. In particular, patient is concerned about having "bit off more than I can chew" regarding his living situation. Counselor has obtained further collateral from that patient's financial concerns are not based in reality, and it now seems likely that there may be a delusional component to patient's depression. Patient denies side effects from medications. No physical complaints. Vital Signs Temp Pulse Resp BP Pulse Ox 04/29/18 05:07 98.4 F 70 18 94 L 04/28/18 18:12 72 136/80 Labs reviewed. No new labs. Review of Systems All other systems reviewed negative except as stated in HPI Mental Status Examination Appearance: Appropriate Consciousness: Alert Orientation: Person, Place (At least) Motor Activity: Other (No abnormalities noted) Speech: Slow Language: Adequate Fund of Knowledge: Adequate Attention and Concentration: Adequate Memory: Unremarkable (Grossly intact on clinical exam) Mood: Other (Remains depressed) Affect: Other (Remains somewhat dysphoric) Thought Process & Associations: Intact Thought Content: Delusional Hallucination Type: None Delusion Type: Other (of financial ruin) Suicidal Ideation: No Homicidal Ideation: No Insight: Poor Judgment: Poor Assessment and Plan - Assessment (1) Depression Code(s): F32.9 - Major depressive disorder, single episode, unspecified Status : Acute - Plan Plan: Titrate Remeron to 30mg qHS over weekend to target depressive symptoms. Add Abilify for possible psychotic features of patient's depression, 5mg daily to start. Check EKG for QTc. Could consider ECT if patient is willing if he does not respond adequately to pharmacotherapy. Continue to monitor on inpatient unit. Continue other care as ordered. Justification for Continued Inpatient Stay: Medication changes. Impairment in reality construction. Monitoring for impairment in safety. High risk for decompensation in less restrictive environment. Discharge Planning: Possible discharge to residential treatment after the weekend if patient improves with pharmacotherapy. Request Healthcare Surrogate/Guardian Advocate?: No (1) Depression Qualifiers: Depression Type: major depressive disorder Major depression recurrence: single episode Active/Remission status: currently active Major depression episode severity: severe Psychotic features: with psychotic features Qualified Code(s): F32.3 - Major depressive disorder, single episode, severe with psychotic features
--- NOTE | 2018-04-29 13:01 | P.TTN ---
- Patient Problems Problems: 1. Discharge planning 2. Medication compliance 3. Knowledge deficit 4. Lack of coping skills - Progress Toward Goals Provider Present: Dr. Isra Solomon (Possible D/C will talk with patient today) Provider Input: Patient has suicidal ideation and tried to paz himself with a blood drawing needle while on jpod. Patient life seemed to spin out of control since move from [place] to [facility]. Nurse(s) Present: RN Nurse Input: Patient had a good night and ate breakfast this morning Psychiatric Counselors Present: Torsten Blair Jr., [facility] (I talked with and patient this morning. Pt. is indescisive about going to [place] Alcira Ward, [facility] Group Spec/RT/OT/[place] Present: GAYLE Workman (Patient has not participated in groups) - Documentation Teaching Recipient: Patient
[2018-04-29] MEDS: Mirtazapine 15 MG Tablet PO SCH (20:45)
[2018-04-29] MEDS: Melatonin 5 MG Tablet PO PRN (20:45)
[2018-04-29] MEDS ORDERED: CLINDAMYCIN 1% TOPICAL SCH (21:00)
[2018-04-30] MEDS: ARIPiprazole 5 MG Tablet PO SCH (08:39)
[2018-04-30] MEDS: Pantoprazole Sodium 20 MG DR Tablet PO SCH (08:42)
[2018-04-30] MEDS ORDERED: DOXYCYCLINE 40 MG PO SCH (09:00)
[2018-04-30] MEDS: DOXYCYCLINE 40 MG PO SCH (17:02)
--- NOTE | 2018-04-30 18:52 | P.PNPSY ---
Subjective Chief Complaint: Brock act Remarks: Reviewed electronic medical records and discussed case with staff. Follow-up was conducted in patient's room with MATY Carrillo present. Patient states that he has been "kind of tired". When asked he states that he has not slept well due to the noise level on the unit. He states that his depression "comes and goes". He has some complaints about the way the Abilify made him feel today. However, I have encouraged him to stay the course as these early symptoms are likely to resolve with time. Mental Status Examination Appearance: Appropriate Consciousness: Alert Orientation: Person, Place (At least) Motor Activity: Other (No abnormalities noted) Speech: Slow Language: Adequate Fund of Knowledge: Adequate Attention and Concentration: Adequate Memory: Unremarkable (Grossly intact on clinical exam) Mood: Other (Remains depressed) Affect: Other (Remains somewhat dysphoric) Thought Process & Associations: Intact Thought Content: Delusional Hallucination Type: None Delusion Type: Other (of financial ruin) Suicidal Ideation: No Suicidal Plan: No Suicidal Intention: No Homicidal Ideation: No Homicidal Plan: No Homicidal Intention: No Insight: Poor Judgment: Poor Assessment and Plan - Assessment (1) Depression Code(s): F32.9 - Major depressive disorder, single episode, unspecified Status : Acute - Plan Plan: Patient will be reevaluated by the attending psychiatrist. Continue with current treatment plan. Justification for Continued Inpatient Stay: Moving this patient to a less restrictive environment would likely result in decompensation. Request Healthcare Surrogate/Guardian Advocate?: No (1) Depression Qualifiers: Depression Type: major depressive disorder Major depression recurrence: single episode Active/Remission status: currently active Major depression episode severity: severe Psychotic features: with psychotic features Qualified Code(s): F32.3 - Major depressive disorder, single episode, severe with psychotic features
[2018-04-30] MEDS: Mirtazapine 15 MG Tablet PO SCH (20:43)
[2018-04-30] MEDS: CLINDAMYCIN PHOSPHATE 1% TOPICAL SCH (20:44)
[2018-05-01] MEDS: ARIPiprazole 5 MG Tablet PO SCH (09:23)
[2018-05-01] MEDS: DOXYCYCLINE 40 MG PO SCH (09:24)
[2018-05-01] MEDS: Pantoprazole Sodium 20 MG DR Tablet PO SCH (09:24)
--- NOTE | 2018-05-01 12:50 | P.PNPSY ---
Subjective Chief Complaint: Brock act Remarks: Reviewed electronic medical records and discussed case with staff. Follow-up was conducted in the patient's room with MATY Mcallister present. Patient states that he is not longer feeling suicidal. He states that he was feeling overwhelmed. He moved from [place] where he had family and friends. He feels lost in [facility] and has not nutured any relationships. He states that being in the hospital has given him time to think. Review of Systems All other systems reviewed negative except as stated in HPI Mental Status Examination Appearance: Appropriate Consciousness: Alert Orientation: Person, Place (At least) Motor Activity: Other (No abnormalities noted) Speech: Slow Language: Adequate Fund of Knowledge: Adequate Attention and Concentration: Adequate Memory: Unremarkable (Grossly intact on clinical exam) Mood: Other (Remains depressed) Affect: Other (Remains somewhat dysphoric) Thought Process & Associations: Intact Thought Content: Delusional Hallucination Type: None Delusion Type: Other (of financial ruin) Suicidal Ideation: No Suicidal Plan: No Suicidal Intention: No Homicidal Ideation: No Homicidal Plan: No Homicidal Intention: No Insight: Poor Judgment: Poor Assessment and Plan - Assessment (1) Depression Code(s): F32.9 - Major depressive disorder, single episode, unspecified Status : Acute - Plan Plan: Patient will be reevaluated by the attending psychiatrist. Continue with current treatment plan. Justification for Continued Inpatient Stay: Moving patient to a less restrictive environment may result in his decompensation. Request Healthcare Surrogate/Guardian Advocate?: No (1) Depression Qualifiers: Depression Type: major depressive disorder Major depression recurrence: single episode Active/Remission status: currently active Major depression episode severity: severe Psychotic features: with psychotic features Qualified Code(s): F32.3 - Major depressive disorder, single episode, severe with psychotic features
[2018-05-01] MEDS: CLINDAMYCIN PHOSPHATE 1% TOPICAL SCH (20:41)
[2018-05-01] MEDS: Mirtazapine 15 MG Tablet PO SCH (20:41)
--- NOTE | 2018-05-02 00:46 | ECG ---
Date Performed: 04/29/2018 Time Performed: 13:42:30 PTAGE: 52 years EKG: Sinus rhythm MODERATE INTRAVENTRICULAR CONDUCTION DELAY BORDERLINE ECG NO PREVIOUS TRACING DOCTOR: Fan Lau Interpretating Date/Time 05/02/2018 00:43:55
[2018-05-02] MEDS: DOXYCYCLINE 40 MG PO SCH (09:02)
[2018-05-02] MEDS: ARIPiprazole 5 MG Tablet PO SCH (09:03)
[2018-05-02] MEDS: Pantoprazole Sodium 20 MG DR Tablet PO SCH (09:03)
--- NOTE | 2018-05-02 10:52 | P.DSPSY ---
Psychiatry Discharge Summary Inpatient Psychiatric care?: Yes Advance Directives: No Mental Health Advance Directive: No Health Care Proxy: No - Admission Admission Date: April 25, 2018 14:26 - Admission Diagnosis (1) Depression Code(s): F32.9 - Major depressive disorder, single episode, unspecified Brief History: From my consult note of 04/24: Mr. Gaines is a 52-year-old male with no reported past psychiatric history who presents under a Brock act by [facility]'s office alleging that the patient has "shown signs of depression over the past several weeks per friends. " Brock act further alleges that the patient made suicidal statements to his . He recently presented for voluntary psychiatric evaluation. According to ED provider notes: "while in J pod, while the nurse was drawing blood, he grabbed the needle from the Vacutainer and was stabbing himself on both sides of his neck." Patient was medically evaluated and cleared. Electronic medical record reviewed. Patient seen and examined. Chart reviewed. Case discussed with nurse in the J pod. On my evaluation today, the patient presents as withdrawn. His speech is slow and he is also somewhat psychomotor slowed. He tells me that he has been feeling increasingly depressed for the last several months after moving from [place]. He endorses low mood, anxiety, poor sleep, hopeless and worthless feelings. He has had recent suicidal ideation. He says that his attempt at stabbing his neck reflected "being stupid." Although he denies suicidal ideation at this time, he seems decidedly unreliable to contract for safety. I can elicit no hypomanic or manic symptoms, and the patient denies any history of same. He denies any audiovisual hallucinations. I can elicit no paranoia, no feelings of thought manipulation, no ideas of reference, or other delusional material. The remainder of the psychiatric ROS is negative. No acute physical complaints. Past psychiatric history: The patient denies a history of psychiatric diagnosis. He denies a history of inpatient or outpatient psychiatric treatment. He denies a history of suicide attempts. Family history: The patient reports that he is adopted and knows nothing of his biological family psychiatric history. Chemical dependency history: The patient denies any abuse of drugs or alcohol. Social history: The patient lives with his . He has no children. He has a bachelor's degree in history from [employer] and presently works in [employer]. He denies any history. Denies any legal history. Denies any access to guns or firearms. He describes himself as spiritual but not sikhism. Past medical history: The patient reports a history of GERD and hyperlipidemia. He also thinks he may be prediabetic. Medications: Omeprazole and simvastatin. On my examination today, 04/26: Patient seen and examined with nurse. Chart reviewed. Case discussed with nursing staff. I do see it noted in the chart that the patient had been refusing food in the ED however nurse reports that the patient ate dinner and snack with no problem. Case discussed in treatment team. On my examination today, the patient presents as anhedonic and withdrawn. He says his mood is "alright." Sleep was fair. When I ask about hopeless or worthless feelings he says "not necessarily." He says that it is too early to tell whether he is having focus or concentration problems. He denies any suicidal or homicidal ideation at this time. No hypomanic or manic symptoms. Denies audiovisual hallucinations. No acute physical complaints. We discuss pharmacotherapeutic options for management of depression. We discuss his initial laboratory findings including elevated CK. We discuss his recent hospitalization, disclosed by and collateral obtained by staff, at [facility]. Tobacco Use In Past 30 Days: No How Often Do You Have a Drink Containing Alcohol: Never Hospital Course: Patient was admitted to a locked, inpatient psychiatric unit. Appropriate precautions were in place throughout patient's hospital stay. Patient was seen and examined on the unit by psychiatry and also visited by counselor. Psychotropic medications were adjusted. Patient tolerated medication changes well without side effects. There was no evidence of any suicidality or homicidality on the inpatient unit. There was no evidence of severe self-care deficit. Collateral information was obtained from the patient's . Counselor, working with patient and , has made arrangements for transfer to [facility] for residential psychiatric treatment. On the day of discharge: Patient seen and examined with nurse. Chart reviewed. Case discussed with nursing staff. No behavioral issues noted overnight. On my examination today, the patient remains somewhat flat and depressed, although his mood is reportedly somewhat improved. He is agreeable to transfer to residential treatment facility today. He denies any suicidal or homicidal ideation, intent or plan. No hypomanic or manic symptoms. He reports that his sleep is improved with medication changes. He denies any audiovisual hallucinations. He denies any command auditory hallucinations to hurt self/ others. I can elicit no delusional material, and when I ask specifically about the delusions of financial ruin that were suspected earlier in the hospital stay , the patient seems to disavow these. He denies any side effects from medications besides perhaps some mild tiredness. We have discussed patient's discharge medication regimen, and I have discussed with him that further adjustments may be made to these medications, and we also discussed ECT as a possible treatment option should his symptoms prove refractory to pharmacologic and psychotherapeutic measures. No physical complaints. Patient's suicide and violence risk assessment suggest lower imminent risk from mental illness, and the patient's level of function is adequate for planned level of outpatient care. Patient has maximized benefit from this inpatient psychiatric hospital stay. It is hoped that the patient will benefit from additional intensive treatment of his depression at residential treatment facility. Patient will be discharged today to residential treatment facility with psychiatric follow-up through that facility. Patient is also to follow up with primary care. I have counseled the patient regarding warning signs for need to return to the psychiatric emergency room as part of a general safety plan. 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 Diagnosis: Principal Code(s): F32.4 - Major depressive disorder, single episode, in partial remission Status: Acute Discharge Disposition: [facility] - Discharge Instructions Discharge Diet: Regular Diet Activities You Can Perform: Weight Bearing As Tolerat - Discharge Time <= 30 minutes Mental Status Examination Appearance: Appropriate Consciousness: Alert Orientation: x4 Motor Activity: Normal gait, Other (No hand tremor, no cogwheeling, no dystonias , no dyskinesias, no other motor abnormalities noted.) Speech: Slow Language: Adequate Fund of Knowledge: Adequate Attention and Concentration: Adequate Memory: Unremarkable (Grossly intact on clinical exam) Mood: Other (Depressed but improving) Affect: Blunt Thought Process & Associations: Intact, Logical, Linear Thought Content: Appropriate Hallucination Type: None Delusion Type: None Suicidal Ideation: No Suicidal Plan: No Suicidal Intention: No Homicidal Ideation: No Homicidal Plan: No Homicidal Intention: No Mental Status Exam Remarks: Insight and judgment are perhaps fair. Discharge/Advance Care Plan - Results Vital Signs: Last Vital Signs Temp 98.2 F 05/02/18 05:30 Pulse 77 05/02/18 05:30 Resp 18 05/02/18 05:30 BP 121/76 05/02/18 05:30 Pulse Ox 98 05/02/18 05:30 Lab Results: Laboratory Results TSH 1.440 uIU/mL (0.358-3.740) 04/23/18 11:15 Summary of Procedures: None done. Imaging: ITS Impressions Soft Tissue Neck CT 04/23/18 11:50 CONCLUSION: 1. No evidence of soft tissue mass or lymphadenopathy. 2. Mild spinal stenosis at C5-6 and C6-7. Mucus retention cyst within left maxillary sinus. Electronically signed by: Fortunato Ricks MD 04/23/2018 2:34 PM EDT Pending Results: None - Medications Number of antipsychotic medications at discharge: 1 - Discharge Care Plan Goals to Promote Your Health: * To prevent worsening of your condition and complications * To maintain your health at the optimal level Directions to Meet Your Goals: Take your medications as prescribed Follow your dietary instruction Follow activity as directed Keep your appointments as scheduled Take your immunizations and boosters as scheduled If your symptoms worsen call your PCP, if no PCP go to Urgent Care Center or Emergency Room For 18/01 questions related to your inpatient stay or results of tests pending at discharge, please contact Dr. Cuong Solomon MD at Smoking is Dangerous to Your Health. Avoid second hand smoking (1) Depression Qualifiers: Depression Type: major depressive disorder Major depression recurrence: single episode Active/Remission status: currently active Major depression episode severity: severe Psychotic features: with psychotic features Qualified Code(s): F32.3 - Major depressive disorder, single episode, severe with psychotic features
== END 2018-05-02 11:05 ==
LOC: NEPJ 10:47 → NEDA 04-25 14:26 → H260 04-25 17:03 → UNDODISIN 04-25 18:58 → NEDA 04-25 19:09 → H260 04-25 19:56
PROVIDERS: ADMIT Psychiatry & Neurology Psychiatry; ATTEND Psychiatry & Neurology Psychiatry